=== PATIENT | female | born 1955 | race Caucasian/White ===

== ENCOUNTER 2019-03-08 10:28 | Emergency (ER) | payer OTHER ==
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
== END 2019-03-08 11:58 | disposition short-term general hospital (02) ==
LOC: ED 10:28
DX: S06.9X9A Unspecified intracranial injury with loss of consciousness of unspecified duration, initial encounter (principal); S22.41XA Multiple fractures of ribs, right side, initial encounter for closed fracture; S01.01XA Laceration without foreign body of scalp, initial encounter; J93.0 Spontaneous tension pneumothorax; Z88.0 Allergy status to penicillin; V59.9XXA Occupant (driver) (passenger) of pick-up truck or van injured in unspecified traffic accident, initial encounter
CPT/HCPCS: 31500; 36600; 70450; 71045; 71260; 72125; 74160; 74177; 80053; 82150; 82550; 82803; 83690; 85025; 86850; 86900; 86901; 86920; 90471; 90715; 94002; 94799; 99284-25; G0480; J0690; J3010; J7030; J7050; P9016